=== PATIENT | male | born 1975 | race Caucasian/White ===

== ENCOUNTER 2017-04-15 17:42 | Observation (INO) ==
--- NOTE | 2017-04-15 17:47 | Emergency Department Note ---
Disposition Clinical Impression: Near syncope Transient cerebral ischemia Qualifiers: Transient cerebral ischemia type: unspecified Qualified Code(s): G45.9 - Transient cerebral ischemic attack, unspecified Disposition: Admitted As Inpatient Condition: Good Referrals: Blue Ann DO [Primary Care Provider] - Forms: ED Satisfaction Letter Time of Disposition: 18:52 Neuro HPI - General Chief Complaint: ED Neuro Symptoms/Deficit Stated Complaint: CVA SYMPTOMS Time Seen by Provider: 04/15/17 17:44 Source: patient, EMS Mode of arrival: EMS Limitations: no limitations Nursing Notes Reviewed: Yes Vital Signs Reviewed: Yes - History of Present Illness HPI Narrative: 41-year-old was eating dinner tonight had acute onset posterior headache with weakness of the left arm and leg and unsteady of gait according to squad. No recent trauma. Patient states he is not on a blood thinner. Onset of Symptoms Date: 04/15/17 Onset of Symptoms Time: 17:00 Symptom Onset Unknown: No Timing confirmed by: caregiver Location: left arm, left leg, ataxia Severity: moderate Quality: weakness, constant Symptoms Improving: No Improves with: none Worsens with: none Context: sudden onset On Anticoagulants: No Associated symptoms: Reports: denies other symptoms Treatments Prior to Arrival: prehospital POC glucose - Related Data Home Medications: Home Medications Medication Instructions Recorded Confirmed Atorvastatin [Lipitor] 10 mg PO HS 09/06/15 09/06/15 BuPROPion XL (24 HR) [Wellbutrin 150 mg PO QPM 09/06/15 09/06/15 XL] BuPROPion XL (24 HR) [Wellbutrin 300 mg PO QAM 09/06/15 09/06/15 XL] Levocetirizine Dihydrochloride 5 mg PO HS 09/06/15 09/06/15 [Xyzal] Lisinopril [Zestril] 20 mg PO DAILY 09/06/15 09/06/15 Previous Rx's Medication Instructions Recorded Clindamycin [Cleocin] 150 mg PO Q6HR #7 capsule 09/06/15 Hydrocodone/Acetaminophen [[facility] each PO Q4H PRN #40 tablet 09/06/15 7.5-325 Tablet] predniSONE [PredniSONE] 2 tab PO DAILY #8 tablet 09/06/15 Allergies/Adverse Reactions: Allergies Allergy/AdvReac Type Severity Reaction Status Date / Time Penicillins [PCN] Allergy Hives Verified 03/19/17 18:29 Constitutional: Denies: fever, chills, weakness, weight change Eyes: Denies: eye pain, eye discharge, vision change ENT ED: Denies: ear pain, throat pain, dental pain, hearing loss, epistaxis, congestion, dysphagia Cardiovascular: Denies: chest pain, palpitations, dyspnea on exertion, edema, syncope Respiratory: Denies: cough, dyspnea, wheezes, hemoptysis, stridor Gastrointestinal: Denies: abdominal pain, nausea, vomiting, diarrhea, constipation, hematemesis, melena, hematochezia Genitourinary: Denies: urgency, dysuria, frequency, hematuria Musculoskeletal: Denies: back pain, neck pain, arthralgia, myalgia Integumentary: Denies: rash, abrasion, lesions Neurological: Reports: weakness, numbness, abnormal gait, vertigo. Denies: headache, paresthesias, confusion Psychiatric: Denies: anxiety, depression, suicidal thoughts, homicidal thoughts , auditory hallucinations, visual hallucinations Endocrine: Denies: fatigue Hematological/Lymphatic: Denies: easy bleeding, easy bruising Allergic/Immunologic: Denies: facial swelling, urticaria Past Medical History - Past Medical History Medical history: Reports: non-contributory Surgical history: Reports: no surgical history Psychiatric history: Reports: anxiety, depression - Social History Smoking Status: Never smoker Smokeless Tobacco Status: No Alcohol use: Reports: none Drug use: Reports: none Physical Exam - General Limitations: no limitations General appearance: alert, in no apparent distress - Head Head exam: atraumatic, normocephalic, normal inspection - Eye Eye exam: Present: normal appearance, PERRL, EOMI - ENT ENT exam: normal exam, normal oropharynx, mucous membranes moist - Neck Neck exam: Present: normal inspection, full ROM, trachea midline - Chest Chest inspection: Present: normal inspection, symmetric chest wall rise - Respiratory Respiratory exam: Present: normal lung sounds bilaterally - Cardiovascular Cardiovascular exam: Present: regular rate, normal rhythm, normal heart sounds - Abdominal Exam Abdominal exam: Present: soft, Non-Tender. Absent: tenderness, distention, guarding, rebound, rigidity - Extremities Exam Extremities exam: Present: normal inspection, full ROM. Absent: tenderness, pedal edema - Expanded Lower Extremity Exam Neurovascular/Tendon exam: Absent: motor deficit, sensory deficit, tendon deficit Gait: not tested/not observed - Back Exam Back exam: Present: normal inspection, full ROM. Absent: tenderness - Neurological Exam Neurological exam: Present: alert, motor sensory deficit - Psychiatric Psychiatric exam: Present: normal affect, normal mood - Skin Skin exam: Present: warm, dry, intact, normal color Course - Reevaluation(s) Reevaluation #1: 41-year-old who comes in with some dizziness lightheadedness initially had left- sided arm weakness and numbness which resolved. Patient was evaluated by a stroke alert [facility] Dr. More who did not feel the patient met TPA criteria but recommended admission for of near syncope and possible TIA. Time: 18:51 - Consultations Consultation #1: Discussed with Dr. Kristi More neurology [facility] stroke program, patient is not a TPA candidate. Dr. More did review the CT scan. Negative for acute findings. Time: 18:04 Consultation #2: Discussed with Dr. Perez, admit Time: 19:18 Vital Signs Temperature 97 F L 04/15/17 17:43 Pulse Rate 87 04/15/17 17:43 Respiratory Rate 16 04/15/17 17:43 Blood Pressure 114/90 04/15/17 17:43 O2 Sat by Pulse Oximetry 100 04/15/17 17:43 Temperature 97 F L 04/15/17 17:43 Pulse Rate 74 04/15/17 19:02 Respiratory Rate 18 04/15/17 19:02 Blood Pressure 138/79 04/15/17 19:02 O2 Sat by Pulse Oximetry 99 04/15/17 19:02 Oxygen Delivery Oxygen Delivery Room Air Neuro Symptoms/Deficit - Lab Data Result diagrams: 04/15/17 17:57 04/15/17 17:57 Lab Results 04/15/17 04/15/17 04/15/17 Range/Units 17:57 17:57 17:57 WBC 11.5 H (4.3-11.1) K/mcL RBC 5.01 (4.19-5.50) M/mcL Hgb 14.6 (12.9-16.9) g/dL Hct 44.9 (37.5-50.1) % MCV 89.6 (83.0-100.0) fL MCH 29.1 (28.0-33.3) pg MCHC 32.5 (31.6-35.5) g/dL RDW 12.4 (11.5-14.5) % Plt Count 273 (140-400) K/mcL MPV 9.0 L (9.4-12.4) fL Immature Gran % 0.7 (0-4) % Seg Neutrophils % 52.5 % Lymphocytes % 31.5 % Monocytes % 9.1 % Eosinophils % 5.3 % Basophils % 0.9 % Neutrophils # 6.0 (1.6-8.9) K/mcL Lymphocytes # 3.6 (0.6-4.6) K/mcL Monocytes # 1.1 (0.0-1.3) K/mcL Eosinophils # 0.6 (0.0-0.6) K/mcL Basophils # 0.1 (0.0-0.2) K/mcL PT 11.6 (9.4-12.1) Seconds INR 1.1 APTT 29.7 (26.0-36.0) Seconds Sodium 138 (136-145) mEq/L Potassium 4.3 (3.5-4.5) mEq/L Chloride 104 (98-109) mEq/L Carbon Dioxide 23 (19-29) mEq/L BUN 22 (8-26) mg/dL Creatinine 1.36 H (0.72-1.25) mg/dL Est GFR ( Amer) > 60 (> 60) Est GFR (Non-Af Amer) 58 L (> 60) BUN/Creatinine Ratio 16 (6-26) Glucose 91 (70-99) mg/dL Calculated Osmolality 289 (280-300) Calcium 9.7 (8.6-10.8) mg/dL Troponin I (0-0.03) ng/mL 04/15/17 Range/Units 17:57 WBC (4.3-11.1) K/mcL RBC (4.19-5.50) M/mcL Hgb (12.9-16.9) g/dL Hct (37.5-50.1) % MCV (83.0-100.0) fL MCH (28.0-33.3) pg MCHC (31.6-35.5) g/dL RDW (11.5-14.5) % Plt Count (140-400) K/mcL MPV (9.4-12.4) fL Immature Gran % (0-4) % Seg Neutrophils % % Lymphocytes % % Monocytes % % Eosinophils % % Basophils % % Neutrophils # (1.6-8.9) K/mcL Lymphocytes # (0.6-4.6) K/mcL Monocytes # (0.0-1.3) K/mcL Eosinophils # (0.0-0.6) K/mcL Basophils # (0.0-0.2) K/mcL PT (9.4-12.1) Seconds INR APTT (26.0-36.0) Seconds Sodium (136-145) mEq/L Potassium (3.5-4.5) mEq/L Chloride (98-109) mEq/L Carbon Dioxide (19-29) mEq/L BUN (8-26) mg/dL Creatinine (0.72-1.25) mg/dL Est GFR ( Amer) (> 60) Est GFR (Non-Af Amer) (> 60) BUN/Creatinine Ratio (6-26) Glucose (70-99) mg/dL Calculated Osmolality (280-300) Calcium (8.6-10.8) mg/dL Troponin I 0.00 (0-0.03) ng/mL - EKG Data EKG attestation: Yes I reviewed and interpreted this EKG. EKG shows normal: sinus rhythm Rate: normal Rhythm: NSR Interpretation: no acute changes NIH Stroke Scale - Level of Consciousness LOC: Alert - LOC Questions LOC Questions: Answers both correctly - LOC Commands LOC Commands: Performs both correctly - Best Gaze Best Gaze: Normal - Visual Visual: No visual loss - Facial Palsy Facial Palsy: Normal - Motor Arms Motor Arm-Left: Drift, does NOT hit bed Motor Arm-Right: No drift for 10 seconds - Motor Legs Motor Leg-Left: Some effort against gravity, limb drifts to bed Motor Leg-Right: No drift for 5 seconds - Limb Ataxia Limb Ataxia: Present in TWO limbs - Sensory Sensory: Normal - Best Language Best Language: Mild to moderate aphasia. Examiner can identify picture from response - Dysarthria Dysarthria: Normal - Extinction and Inattention Extinction and Inattention: Normal - NIHSS Total Score NIHSS Total Score: 6 TPA Checklist - Eligibilty for IV tPA 1. LKW equal to or less than 4.5 hours be before treatment: Yes 2. Clinical diagnosis of ischemic stroke causing deficit: No - LKW: 3-4.5 hrs Add. Warnings/Precautions Patient/family understanding: The patient/family members have been counseled and understood the risk, benefit , and alternatives of treatment.
[2017-04-15 18:02] LABS: Basophils # 0.1 K/mcL (0.0-0.2); Basophils % 0.9 %; Eosinophils # 0.6 K/mcL (0.0-0.6); Eosinophils % 5.3 %; Hematocrit 44.9 % (37.5-50.1); Hemoglobin 14.6 g/dL (12.9-16.9); Immature Granulocytes % 0.7 % (0-4); Lymphocytes # 3.6 K/mcL (0.6-4.6); Lymphocytes % 31.5 %; Mean Corpuscular HGB Conc 32.5 g/dL (31.6-35.5); Mean Corpuscular Hemoglobin 29.1 pg (28.0-33.3); Mean Corpuscular Volume 89.6 fL (83.0-100.0); Monocytes # 1.1 K/mcL (0.0-1.3); Monocytes % 9.1 %; Platelet Count 273 K/mcL (140-400); Red Blood Count 5.01 M/mcL (4.19-5.50); Red Cell Distribution Width 12.4 % (11.5-14.5); Segmented Neutrophils % 52.5 %
[2017-04-15 18:07] LABS: INR 1.1; Prothrombin Time 11.6 Seconds (9.4-12.1)
[2017-04-15 18:09] LABS: Activated Partial Thrombo Time 29.7 Seconds (26.0-36.0)
[2017-04-15 18:16] LABS: BUN/Creatinine Ratio 16 (6-26); Blood Urea Nitrogen 22 mg/dL (8-26); Calcium 9.7 mg/dL (8.6-10.8); Carbon Dioxide 23 mEq/L (19-29); Chloride 104 mEq/L (98-109); Glucose 91 mg/dL (70-99); Osmolality,Calculated 289 (280-300); Potassium 4.3 mEq/L (3.5-4.5); Sodium 138 mEq/L (136-145); eGFR For African Americans > 60 (> 60); eGFR For Non-African Americans 58 (> 60)
[2017-04-15] MEDS ORDERED: Naloxone 0.4 MG/ML INJ IVP PRN (20:08)
[2017-04-15] MEDS ORDERED: Ondansetron 4 MG/2 ML VIAL IVP PRN (20:08)
[2017-04-15] MEDS ORDERED: *HR* Morphine 2 MG/ML SYRINGE IVP PRN (20:08)
[2017-04-15] MEDS ORDERED: *HR* OxyCODONE Immed Rel 5 MG TABLET PO PRN (20:08)
[2017-04-15] MEDS ORDERED: Acetaminophen 325 MG TABLET PO PRN (20:08)
--- NOTE | 2017-04-15 20:45 | Internal Med History&Physical ---
Date of Encounter: 04/15/17 Time of Encounter: 19:40 Assessment and Plan (1) Transient cerebral ischemia Current visit: Yes Status: Suspected 1. Will proceed with stroke work-up. 2. MRI brain, ECHO, BLE Dopplers 3. Consult neurology -- I called and discussed with Dr. Salazar. 4. ASA, STATIN. 5. Consult PT/OT/ST. Qualifiers: Transient cerebral ischemia type: unspecified Qualified Code(s): G45.9 - Transient cerebral ischemic attack, unspecified (2) Hypertension Current visit: Yes Status: Chronic 1. Hold Lisinopril and allow permissive HTN in the face of possible stroke. 2. Will treat HTN if SBP > 160. 3. Resume home meds when appropriate. Qualifiers: Hypertension type: essential hypertension Qualified Code(s): I10 - Essential (primary) hypertension (3) Psychiatric disorder Current visit: Yes Status: Chronic 1. Unknown psychiatric disorder, father would not elaborate in his presence. 2. Need to further investigate. 3. Patient may need sitter while in hospital. (4) DVT prophylaxis Current visit: Yes Status: Acute 1. Heparin SQ. Internal Medicine - H&P: HPI Chief complaint: headache; left sided weakenss Admitted From: Emergency Dept Plans for Post Hospital Care: Home History of present illness: Mr. Dykes is a 41 year old male who presents with complaints of sudden onset of headache followed by left-sided weakness and stumbling gait this afternoon. As a result, he was brought in by his caregiver and his father to the ER. Workup in the ER was negative. ER staff did telemedicine consultation with [facility] neurology who recommended he was not a TPA candidate. They recommended patient be admitted here at [facility] for stroke workup. Upon my assessment of the patient in the ER, he is lying in bed comfortably with no complaints. Father and caregiver are present. I inquired as to why he has a caregiver, and his father states he has caregiver because of underlying psychiatric illness. Father would not elaborate on that in the presence of the patient. He is alert and oriented 3. He follows commands fairly well. He is a little slow to respond and cooperate, however. His father and caregiver state that this is his baseline. There were no seizure activities, loss of bowel or bladder function, fevers, cough, congestion, or sore throat. He has never had this before and there is no family history of stroke. Past Med Surg Social Fam HX - Past Medical History Attestation: Yes The following information was validated with the patient. Source: old records reviewed, obtained from family Medical history: GERD, hypertension Psychiatric history: anxiety, depression - Past Surgical History Surgical History: no surgical history - Social History Smoking Status: Never smoker Smokeless Tobacco Status: No Alcohol use: none Drug use: none Current living situation: Home, With Family, Other (home caregiver) - Family History Mother History Unknown: Yes Living Status: Father Living Status: Still Living Hx Family Neurologic Disorders: No Internal Medicine - H&P: Meds BuPROPion XL (24 HR) [Wellbutrin XL] 150 mg PO QAM 09/06/15 [History] Lisinopril [Zestril] 20 mg PO DAILY 09/06/15 [History] Albuterol Sulfate [Proair Hfa] 2 puff IH Q4H PRN 04/15/17 [History] Atorvastatin Calcium [Lipitor] 20 mg PO HS 04/15/17 [History] Loratadine [Claritin] 10 mg PO DAILY 04/15/17 [History] Pantoprazole Sodium [Protonix] 40 mg PO DAILY 04/15/17 [History] 3 Allergy/AdvReac Type Severity Reaction Status Date / Time Penicillins [PCN] Allergy Hives Verified 03/19/17 18:29 - Constitutional Constitutional: no chills, no fever(s), no night sweats - EENT Eyes: no blurry vision, no change in vision Ears: no ear pain, no tinnitus Nose, mouth and throat: no nasal congestion, no nasal discharge, no sinus pressure, no sore throat - Cardiovascular Cardiovascular ROS IM: no chest pain, no dyspnea, no dyspnea on exertion, no palpitations, no syncope - Respiratory Respiratory: no cough, no hemoptysis, no chest congestion, no excessive phlegm production - Gastrointestinal Gastrointestinal: no abdominal pain, no diarrhea, no hematemesis, no hematochezia, no melena, no vomiting - Genitourinary Genitourinary ROS male: no dysuria, no flank pain, no hematuria - Musculoskeletal Musculoskeletal ROS IM: no arthralgias, no back pain - Integumentary Integumentary IM: no rash, no jaundice - Neurological Neurological ROS: focal weakness (left side -- onset today), headache(s), no disequilibrium, no dizziness, no frequent falls - Psychiatric Psychiatric: anxiety, depression - Endocrine Endocrine IM: no polydipsia, no polyuria - Allergic/Immunologic Allergic/Immunologic: no wheezing, no GI upset with certain foods - Constitutional Vitals: Temp Pulse Resp BP Pulse Ox 97 F L 78 18 155/68 100 04/15/17 17:43 04/15/17 19:56 04/15/17 20:33 04/15/17 20:33 04/15/17 19:56 General appearance: Present: cooperative, disheveled, A&O X 3, pleasant - Head Head exam: Present: atraumatic, normal inspection - Expanded Head Exam Head exam expanded: Absent: abrasion, contusion, general tenderness - Eye Eye exam: Present: EOMI, PERRL. Absent: scleral icterus Pupils: Present: normal accommodation - ENT ENT exam: Present: mucous membranes dry, normal exam - Neck Neck exam general surgery: Present: full ROM, supple. Absent: tenderness, nuchal rigidity - Expanded Neck Exam Neck exam: Absent: carotid bruit - Respiratory Respiratory exam: Present: CTAB. Absent: chest wall tenderness, rales, rhonchi , wheezes - Cardiovascular Cardiovascular exam: Present: RRR, +S1, +S2. Absent: diastolic murmur, systolic murmur - GI/Abdominal GI/Abdominal exam: Present: normal bowel sounds, soft. Absent: hepatomegaly, splenomegaly, tenderness - Extremities Exam Extremities exam: Present: full ROM, warm, radial pulses palpable and symmetrical. Absent: calf tenderness, joint swelling, pedal edema, tenderness - Back Exam Back exam: Present: normal inspection. Absent: CVA tenderness (L), CVA tenderness (R) - Neurological Exam Neurological exam: Present: alert, CN II-XII intact, oriented X3, no focal deficits, strengths equal and symetr throughout Additional comments: patient claims to have no sensation to his BLE; however, he responds easily to tactile stimulation of his feet, legs, shins unable to perform finger to nose and heel to sexton testing due to patient lack of cooperation - Psychiatric Psychiatric exam: Present: flat affect. Absent: agitated, anxious - Skin Skin exam: Present: dry, warm. Absent: rash Internal Med - H&P Results - Labs CBC & Chem 7: 04/15/17 17:57 04/15/17 17:57 - EKG Data -: EKG Interpreted by Myself EKG shows normal: sinus rhythm Rate: normal - EKG Data Prior EKG available for review: no EKG comments: 04/15/17 20:55 NSR; WNL - Diagnostic Studies CT scan - head Additional comments: CT head report reviewed: negative
[2017-04-15] MEDS: 0.9 % Sodium Chloride 1,000 ML IVC SCH (22:25)
[2017-04-15] MEDS: *HR* Heparin 5,000 UNIT/ML VIAL SQ SCH (22:25)
[2017-04-16] MEDS: *HR* Heparin 5,000 UNIT/ML VIAL SQ SCH ×2 (04:59→16:25)
[2017-04-16 05:16] LABS: Basophils # 0.1 K/mcL (0.0-0.2); Eosinophils # 0.7 K/mcL (0.0-0.6); Eosinophils % 6.4 %; Hematocrit 42.6 % (37.5-50.1); Hemoglobin 13.6 g/dL (12.9-16.9); Immature Granulocytes % 0.4 % (0-4); Lymphocytes # 4.6 K/mcL (0.6-4.6); Lymphocytes % 44.8 %; Mean Corpuscular HGB Conc 31.9 g/dL (31.6-35.5); Mean Corpuscular Hemoglobin 28.5 pg (28.0-33.3); Mean Corpuscular Volume 89.3 fL (83.0-100.0); Mean Platelet Volume 9.5 fL (9.4-12.4); Monocytes # 0.8 K/mcL (0.0-1.3); Platelet Count 241 K/mcL (140-400); Red Blood Count 4.77 M/mcL (4.19-5.50); Red Cell Distribution Width 12.4 % (11.5-14.5); Segmented Neutrophils % 39.4 %
[2017-04-16 05:29] LABS: Alanine Aminotransferase 33 Units/L (0-55); Albumin 3.4 g/dL (3.5-5.0); Albumin/Globulin Ratio 0.9 (1.1-2.2); Alkaline Phosphatase 64 Units/L (38-126); Aspartate Amino Transferase 23 Units/L (5-34); BUN/Creatinine Ratio 18 (6-26); Bilirubin,Total 0.5 mg/dL (0.2-1.2); Blood Urea Nitrogen 18 mg/dL (8-26); Calcium 9.4 mg/dL (8.6-10.8); Carbon Dioxide 23 mEq/L (19-29); Chloride 107 mEq/L (98-109); Chol/HDL Ratio 4.8 (0-4.9); Cholesterol 205 mg/dL (< 200); Globulin 3.9 g/dL (2.4-3.5); Glucose 84 mg/dL (70-99); HDL Cholesterol 43 mg/dL (40-59); LDL Cholesterol,Calculated 130 mg/dL (0-99); Magnesium 1.6 mg/dL (1.6-2.6); Osmolality,Calculated 289 (280-300); Potassium 3.8 mEq/L (3.5-4.5); Sodium 139 mEq/L (136-145); Total Protein 7.3 g/dL (6.0-8.3); Triglycerides 158 mg/dL (< 150); eGFR For African Americans > 60 (> 60); eGFR For Non-African Americans > 60 (> 60)
[2017-04-16] MEDS: Loratadine 10 MG TABLET PO SCH (08:11)
[2017-04-16] MEDS: BuPROPion XL (24 HR) 150 MG TABLET PO SCH (08:11)
[2017-04-16] MEDS: Aspirin 81 MG TAB.CHEW PO SCH (08:11)
[2017-04-16] MEDS: 0.9 % Sodium Chloride 1,000 ML IVC SCH (08:21)
--- NOTE | 2017-04-16 12:04 | Neurology - Consult Note ---
Date of Encounter: 04/16/17 Time of Encounter: 07:30 Assessment and Plan (1) Transient cerebral ischemia Current Visit: Yes Status: Suspected At this time it is not clear that indicate patient has a true ischemic event or perhaps it is related to some other condition at the moment he is only complaining of feeling no sensation in his left lower extremity without any focal motor weakness or changes in the reflexes seem to be quite unusual physiologically. One possibility could be related to localized impingement but he is not complaining of any back pain needed any changes in the reflexes to be suggestive of any radiculopathy. He also has some psychiatric behavior problems but apparently did not having diagnoses or at least it was not informed what kind of diagnosis he had. Regardless is scheduled for an MRI of the brain will follow the result for any ischemic event in the meantime continue him on aspirin he would also benefit from physical therapy evaluation particularly to see if he able to ambulate by himself or not Qualifiers: Transient cerebral ischemia type: unspecified Qualified Code(s): G45.9 - Transient cerebral ischemic attack, unspecified (2) Psychiatric disorder Current Visit: Yes Status: Chronic History of Present Illness HPI: Mr. Dykes is a 41 year old male admitted with sudden onset of headache followed by left-sided weakness and stumbling gait this afternoon. As a result, he was brought in by his caregiver and his father to the ER. Workup in the ER was negative. [facility] tele stroke consultation was done thought not to be a TPA candidate, recommended patient be admitted here at [facility] for stroke workup. in the ER He was accompanied with his caregiver, and his father states he has caregiver because of underlying psychiatric illness. he would not elaborate on that in the presence of the patient. He is alert and oriented 3. He follows commands fairly well. He is a little slow to respond and cooperate, Past Med Surg Social Fam HX - Past Medical History Medical history: GERD, hypertension Psychiatric history: anxiety, depression - Past Surgical History Surgical History: other - Social History Smoking Status: Never smoker Smokeless Tobacco Status: No Alcohol use: none Drug use: none - Family History Mother History Unknown: Yes Adopted: Yes Living Status: Father Adopted: Yes Living Status: Still Living Hx Family Neurologic Disorders: No Medications and Allergies BuPROPion XL (24 HR) [Wellbutrin XL] 150 mg PO QAM 09/06/15 [History] Lisinopril [Zestril] 20 mg PO DAILY 09/06/15 [History] Albuterol Sulfate [Proair Hfa] 2 puff IH Q4H PRN 04/15/17 [History] Atorvastatin Calcium [Lipitor] 20 mg PO HS 04/15/17 [History] Loratadine [Claritin] 10 mg PO DAILY 04/15/17 [History] Pantoprazole Sodium [Protonix] 40 mg PO DAILY 04/15/17 [History] 3 Allergy/AdvReac Type Severity Reaction Status Date / Time Penicillins [PCN] Allergy Hives Verified 03/19/17 18:29 All Systems: A 10-system review of systems was performed and is negative for pertinent findings except as documented above in the HPI. Physical Examination - Vital Signs Vital Signs: Initial Vital Signs Temp Pulse Resp BP Pulse Ox 97 F L 87 16 114/90 100 04/15/17 17:43 04/15/17 17:43 04/15/17 17:43 04/15/17 17:43 04/15/17 17:43 - Constitutional General appearance: comfortable - Neurologic Detailed motor examination: grossly full strength in all extremities Detailed sensory examination: other (he says NOT feeling any thing in his left lower extremity, despite able to withdraw on pin prick and pain) Reflex and gait examination: intact Reflexes: Biceps: 1+, Triceps: 1+, Brachioradialis: 1+, Patella: 1+, Achilles: 1 + Mental Status Examination: awake, alert, oriented to person, oriented to place, oriented to time, follows commands appropriately, answers questions appropriately, follows simple commands, localizes noxious stimulation Cranial nerve examination: PERRL, EOMI, visual graff intact, no facial asymmetry is present, no dysarthria Cerebellar examination: no dysmetria Results - Laboratory Findings CBC and BMP: 04/16/17 04:06 04/16/17 04:06 Abnormal lab findings: Abnormal lab results Eosinophils # 0.7 K/mcL (0.0-0.6) H 04/16/17 04:06 Albumin 3.4 g/dL (3.5-5.0) L 04/16/17 04:06 Globulin 3.9 g/dL (2.4-3.5) H 04/16/17 04:06 Albumin/Globulin Ratio 0.9 (1.1-2.2) L 04/16/17 04:06 Triglycerides 158 mg/dL (< 150) H 04/16/17 04:06 Cholesterol 205 mg/dL (< 200) H 04/16/17 04:06 LDL Cholesterol, Calc 130 mg/dL (0-99) H 04/16/17 04:06 VLDL Cholesterol, Calc 32 mg/dL (< 31) H 04/16/17 04:06 Consult Discharge Plan - Plan Referrals: Blue Ann DO [Primary Care Provider] -
--- NOTE | 2017-04-16 15:55 | Internal Med Progress Note ---
Date of Encounter: 04/16/17 Time of Encounter: 10:00 - Assessment and plan (1) DVT prophylaxis Current Visit: Yes Status: Acute Assessment and plan: Heparin subcutaneously (2) Near syncope Current Visit: Yes Status: Acute Assessment and plan: Patient reports he feels dizzy and almost blackout. Consider near syncope. - We will check echocardiogram and duplex carotid. - Continue cardiac monitoring to rule out arrhythmia. - MRI brain has been done, no acute infarct - Orthostatic vitals (3) Hypertension Current Visit: Yes Status: Chronic Assessment and plan: BP is not high right now. Home medications lisinopril is on hold Qualifiers: Hypertension type: essential hypertension Qualified Code(s): I10 - Essential (primary) hypertension (4) Psychiatric disorder Current Visit: Yes Status: Chronic Assessment and plan: Patient did report some psychiatry disorder. Not sure for the final diagnosis. Patient has focal neuro deficit but MRI shows negative for infarct. Need to rule out conversion disorder. Will consult psychiatry. (5) Transient cerebral ischemia Current Visit: Yes Status: Suspected Assessment and plan: Patient has neuro symptoms on and off. Rectal now complaining of left leg no feeling. MR brain shows no infarct. - Probably TIA. - We will continue cardiac monitoring. Check echo and duplex carotid - Neurology consult on case - PTOT evaluation Qualifiers: Transient cerebral ischemia type: unspecified Qualified Code(s): G45.9 - Transient cerebral ischemic attack, unspecified - Time Spent With Patient 25 - 35 minutes - Subjective Interval history: Patient is a 41-year-old male admitted for left leg loss sensation and dizziness. Past medical history significant for hypertension, GERD, and psych disorder. Patient was seen and examined. He is awake alert oriented 3. Denies dizziness. Complaining of no sensation on left leg. Vital signs stable. Neurology consult appreciated. MRI brain shows no acute intracranial changes. - Constitutional Vitals: Temp Pulse Resp BP Pulse Ox 98.1 F 73 14 110/95 96 04/16/17 15:18 04/16/17 15:18 04/16/17 15:18 04/16/17 15:18 04/16/17 15:18 General appearance: Present: cooperative, disheveled, A&O X 3, pleasant - Head Head exam: Present: atraumatic, normocephalic - Eye Eye exam: Present: PERRL, conjuntiva pink, sclera anicteric Pupils: Present: PERRL - Neck Neck exam general surgery: Present: supple, trachea midline. Absent: lymphadenopathy - Respiratory Respiratory exam: Present: CTAB. Absent: accessory muscle use, rales, rhonchi, wheezes - Cardiovascular Cardiovascular exam: Present: RRR, +S1, +S2. Absent: diastolic murmur, gallop, rubs, systolic murmur - GI/Abdominal GI/Abdominal exam: Present: normal bowel sounds, soft, no peritoneal signs. Absent: distended, tenderness - Extremities Exam Extremities exam: Present: warm, radial pulses palpable and symmetrical. Absent : calf tenderness, cyanotic, pedal edema - Neurological Exam Neurological exam: Present: CN II-XII intact, motor sensory deficit (Left leg sensation decreased.), oriented X3, no focal deficits. Absent: pronater drift, facial droop, speech deficit - Skin Skin exam: Present: dry, intact Internal Medicine: Result - Labs CBC & Chem 7: 04/16/17 04:06 04/16/17 04:06 Labs: Short CBC 04/16/17 Range/Units 04:06 WBC 10.2 (4.3-11.1) K/mcL Hgb 13.6 (12.9-16.9) g/dL Hct 42.6 (37.5-50.1) % Plt Count 241 (140-400) K/mcL Neutrophils # 4.0 (1.6-8.9) K/mcL BMP 04/16/17 04:06 Sodium 139 Potassium 3.8 Chloride 107 Carbon Dioxide 23 BUN 18 Creatinine 1.00 Glucose 84 Calcium 9.4 Liver Function 04/16/17 Range/Units 04:06 Total Bilirubin 0.5 (0.2-1.2) mg/dL AST 23 (5-34) Units/L ALT 33 (0-55) Units/L Alkaline Phosphatase 64 (38-126) Units/L Albumin 3.4 L (3.5-5.0) g/dL - ABG Interpretation ABG results: PT/INR, D-dimer PT 11.6 Seconds (9.4-12.1) 04/15/17 17:57 - Impressions Impressions Brain MRI 04/16/17 20:08 IMPRESSION: 1. No acute infarct or acute intracranial process identified. 2. Several nonspecific foci of white matter signal abnormality in both frontal lobes. Although nonspecific, these are likely of doubtful clinical significance. 3. Chronic appearing right maxillary sinusitis. D/ / 04/16/2017 10:45:05 Eliud Thakkar MD / earnold Interpreting Provider: Eliud Thakkar MD Echocardiogram 04/16/17 20:08 Impressions: Normal LV systolic function, LVEF 55-60%. Normal left ventricular diastolic function. Normal right ventricular size and function. No significant valvular dysfunction. No evidence of intracardiac shunting with agitated saline contrast. Left Ventricular Wall Motion: Rest Echo Findings All wall segments showed normal motion. Findings: Study Quality * Suboptimal echo windows. ECG Findings * Normal sinus rhythm. Left Ventricle * Normal LV systolic function, LVEF 55-60%. * Normal LV chamber size and wall thickness. * Normal left ventricular diastolic function. Right Ventricle * Normal right ventricular size and function. Left Atrium * Normal left atrial size. Right Atrium * Normal right atrial size. Interatrial Septum * No evidence of intracardiac shunting with agitated saline contrast. Aorta * Normally sized aortic root. Pericardium * There is no pericardial effusion present. IVC * The IVC is not well evaluated. Aortic Valve * Aortic valve not well visualized. * No aortic stenosis. * No aortic regurgitation. Mitral Valve * Normal mitral valve structure. * No mitral stenosis. * Trace mitral regurgitation. Tricuspid Valve * Normal tricuspid valve structure. * No tricuspid stenosis. * Trace tricuspid regurgitation. * Unable to estimate RVSP due to lack of TR jet. Pulmonic Valve * Pulmonic valve not well visualized. * No pulmonic stenosis. * No pulmonic regurgitation. Consult Discharge Plan - Plan Referrals: Blue nAn DO [Primary Care Provider] -
--- NOTE | 2017-04-16 18:19 | Electrocardiograph Report ---
[address] [address] Test Date: 2017-04-15 Pat Name: Edwardo Dykes Department: 104 Room: [facility] Gender: M Laser Machine Operator: : 1975 Requested By: Lashaun Mariano Order Number: [id number] Reading MD: Josefina Mora Measurements Intervals [place] Rate: 82 P: 65 WI: 137 QRS: 12 QRSD: 98 T: 18 QT: 384 QTc: 422 Interpretive Statements SINUS RHYTHM Electronically Signed On 04-16-2017 18:17:17 EDT by Josefina Mora
[2017-04-17] MEDS: *HR* Heparin 5,000 UNIT/ML VIAL SQ SCH (05:53)
[2017-04-17 06:11] LABS: Basophils # 0.1 K/mcL (0.0-0.2); Basophils % 1.1 %; Eosinophils # 0.6 K/mcL (0.0-0.6); Eosinophils % 7.3 %; Hemoglobin 13.8 g/dL (12.9-16.9); Immature Granulocytes % 0.4 % (0-4); Lymphocytes # 3.2 K/mcL (0.6-4.6); Lymphocytes % 39.5 %; Mean Corpuscular HGB Conc 32.9 g/dL (31.6-35.5); Mean Corpuscular Hemoglobin 29.2 pg (28.0-33.3); Mean Corpuscular Volume 88.8 fL (83.0-100.0); Mean Platelet Volume 9.7 fL (9.4-12.4); Monocytes # 0.9 K/mcL (0.0-1.3); Monocytes % 10.6 %; Neutrophils # 3.3 K/mcL (1.6-8.9); Platelet Count 259 K/mcL (140-400); Red Blood Count 4.73 M/mcL (4.19-5.50); Red Cell Distribution Width 12.3 % (11.5-14.5); Segmented Neutrophils % 41.1 %
[2017-04-17 07:15] LABS: BUN/Creatinine Ratio 17 (6-26); Blood Urea Nitrogen 18 mg/dL (8-26); Calcium 9.6 mg/dL (8.6-10.8); Carbon Dioxide 24 mEq/L (19-29); Chloride 104 mEq/L (98-109); Glucose 90 mg/dL (70-99); Osmolality,Calculated 289 (280-300); Potassium 3.9 mEq/L (3.5-4.5); Sodium 139 mEq/L (136-145); eGFR For African Americans > 60 (> 60); eGFR For Non-African Americans > 60 (> 60)
[2017-04-17] MEDS: BuPROPion XL (24 HR) 150 MG TABLET PO SCH (08:30)
[2017-04-17] MEDS: Loratadine 10 MG TABLET PO SCH (08:30)
[2017-04-17] MEDS: Aspirin 81 MG TAB.CHEW PO SCH (08:30)
[2017-04-17 10:51] VITALS: BP 128/91
--- NOTE | 2017-04-17 12:09 | Neurology Progress Note ---
Date of Encounter: 04/17/17 Time of Encounter: 08:15 Assessment and Plan (1) Leg numbness Current Visit: Yes Status: Acute At this point no evidence of any stroke on his MRI or on his exam his numbness and not feeling anything on his left lower extremity is also quite unusual is does not fit into any functional neurological pattern regardless, he says that he is have a feeling in his left leg really doubt that it is a lumbar radicular special even there was no change in the reflexes noted. At this time I would not recommend any further workup he could be evaluated by physical therapy to make sure that his gait and balance is a stable and is okay to discharge him. I agree that he may need psychiatric evaluation particularly to have a confirmed diagnosis Patient is okay to discharge from neurology standpoint (2) Psychiatric disorder Current Visit: Yes Status: Chronic Subjective Interval history: Denies any other new symptoms or obvious stable in fact this morning he mentioned that he is a good news for us in the news is that he can start feeling in his left lower extremity as yesterday he was not able to feel anything. MRI of the brain did not show any acute abnormalities some nonspecific chronic white matter changes noted Objective - Constitutional Vitals: Temp Pulse Resp BP Pulse Ox 97.7 F 86 12 128/91 97 04/17/17 10:50 04/17/17 10:50 04/17/17 10:50 04/17/17 10:50 04/17/17 10:50 - Neurological Exam Motor Examination: Present: grossly full strength in all extremities Sensation intact: Present: other (he says NOT feeling any thing in his left lower extremity, despite able to withdraw on pin prick and pain) Reflex and gait examination: intact Mental Status Examination: Present: awake, alert, oriented to person, oriented to place, oriented to time, follows commands appropriately, answers questions appropriately, follows simple commands, localizes noxious stimulation Cranial nerve examination: Present: PERRL, EOMI, visual graff intact, no facial asymmetry is present, no dysarthria Cerebellar examination: Present: no dysmetria Results - Laboratory Findings CBC and BMP: 04/17/17 04:37 04/17/17 04:37 Abnormal lab findings: Abnormal lab results Albumin 3.4 g/dL (3.5-5.0) L 04/16/17 04:06 Globulin 3.9 g/dL (2.4-3.5) H 04/16/17 04:06 Albumin/Globulin Ratio 0.9 (1.1-2.2) L 04/16/17 04:06 Triglycerides 158 mg/dL (< 150) H 04/16/17 04:06 Cholesterol 205 mg/dL (< 200) H 04/16/17 04:06 LDL Cholesterol, Calc 130 mg/dL (0-99) H 04/16/17 04:06 VLDL Cholesterol, Calc 32 mg/dL (< 31) H 04/16/17 04:06 Consult Discharge Plan - Plan Referrals: Tricia Moses CNP [Advanced Practice Nurse] - 04/24/17 1:00 pm
--- NOTE | 2017-04-17 15:25 | Discharge Summary ---
Date of Encounter: 04/17/17 Time of Encounter: 10:00 - Discharge Diagnosis (1) DVT prophylaxis Priority: Secondary Status: Acute (2) Near syncope Priority: Primary Status: Acute (3) Hypertension Priority: Secondary Status: Chronic Qualifiers: Hypertension type: essential hypertension Qualified Code(s): I10 - Essential (primary) hypertension (4) Psychiatric disorder Priority: Secondary Status: Chronic (5) Transient cerebral ischemia Priority: Primary Status: Suspected Qualifiers: Transient cerebral ischemia type: unspecified Qualified Code(s): G45.9 - Transient cerebral ischemic attack, unspecified - Discharge Medications Prescriptions: Aspirin 81 mg PO DAILY #30 tab.chew Home Medications: BuPROPion XL (24 HR) [Wellbutrin Xl] 150 mg PO QAM 09/06/15 [History] Lisinopril [Zestril] 20 mg PO DAILY 09/06/15 [History] Albuterol Sulfate [Proair Hfa] 2 puff IH Q4H PRN 04/15/17 [History] Loratadine [Claritin] 10 mg PO DAILY 04/15/17 [History] Pantoprazole Sodium [Protonix] 40 mg PO DAILY 04/15/17 [History] Aspirin 81 mg PO DAILY #30 tab.chew 04/17/17 [Rx] Atorvastatin Calcium [Lipitor] 40 mg PO HS #60 04/17/17 [Rx] Allergies/Adverse Reactions: 3 Allergy/AdvReac Type Severity Reaction Status Date / Time Penicillins [PCN] Allergy Hives Verified 03/19/17 18:29 Procedures/tests Complete & Pending: Procedures Performed prior 72 hours Category Date Time Status MR head/brain wo con [MR] Routine MRI 04/16/17 20:08 Completed ECG 12 lead ECG [ECG] AM 0600 Y 04/16/17 06:00 Ordered ECG 12 lead ECG [ECG] Routine Y 04/15/17 17:46 Completed EV carotid duplex imaging BI Routine Y 04/16/17 20:08 Completed EV echocardiogram Routine Y 04/16/17 20:08 Completed - Notes to Outpatient Provider 1. Add aspirin 81 mg daily. Increase atorvastatin dose from 20mg daily to 40mg qd. Date of admission: 04/15/17 20:02 Primary care physician: Blue Ann DO Consults: 04/15/17 20:08 Consult to Neurology [CONS] Routine Consulting Provider: Neurology [facility] Reason for Consult: left sided weakness Time Notified: 20:23 Call Completed: No 04/15/17 21:25 Consult to Pastoral Services [CONS] Routine Comment: 04/16/17 09:40 Consult to Physical Therapy [CONS] Routine Comment: Evaluate, develop and implement POC Reason for Consult: leg weakness, 04/16/17 16:17 Consult to Psychiatry [CONS] Routine Consulting Provider: Psychiatry [facility] Reason for Consult: Psych hx. Neuro symptoms but MRI shows no infarct, r/o Conversion disorder Call Completed: Yes Discharging clinician: Lashaun Mariano Anticipated date of discharge: 04/17/17 - Patient Status Disposition: Home, Self-Care Condition: Good Functional capacity at discharge: independent ambulation Overall status at discharge: patient is back to baseline - Discharge Instructions Follow Up With: Tricia Moses CNP [Advanced Practice Nurse] - 04/24/17 1:00 pm - Diet and Activity Activity: increase activity as tolerated Diet: advance to your usual diet, low salt diet Interval History: HPI: Mr. Dykes is a 41 year old male who presents with complaints of sudden onset of headache followed by left-sided weakness and stumbling gait this afternoon. As a result, he was brought in by his caregiver and his father to the ER. Workup in the ER was negative. ER staff did telemedicine consultation with [facility] neurology who recommended he was not a TPA candidate. They recommended patient be admitted here at [facility] for stroke workup. Upon my assessment of the patient in the ER, he is lying in bed comfortably with no complaints. Father and caregiver are present. I inquired as to why he has a caregiver, and his father states he has caregiver because of underlying psychiatric illness. Father would not elaborate on that in the presence of the patient. He is alert and oriented 3. He follows commands fairly well. He is a little slow to respond and cooperate, however. His father and caregiver state that this is his baseline. There were no seizure activities, loss of bowel or bladder function, fevers, cough, congestion, or sore throat. He has never had this before and there is no family history of stroke. Hospital course: Mr. Dykes is a 41 year old male was admitted as near syncope and to rule out stroke as patient complaining of left leg no sensation. Patient was placed on continuous cardiac monitoring over 24 hours, echocardiogram, duplex carotid, and MRI brain has been done. All results unremarkable. Neurology consult was called and saw patient. Patient's condition has improved spontaneously. We planned to consult psychiatry to rule out conversion disorder, however because patient has resumed his sensation on left leg, psychiatry consult is not really necessary. I saw and examined the patient today. He is awake alert, oriented 3. Said he can feel on his left leg, sensation resumed without any deficit. Physical therapy saw patient and think patient function well, no further physical therapy needed. Vitals are stable, including orthostatic vitals are normal. Patient will discharge home. Will add aspirin and increase dose of atorvastatin , as patient was considered TIA and was found hyperlipidemia. - Time Spent with Patient Total time spent providing and/or coordinating discharge services: 25 minutes Less than 30 minutes - Constitutional Vitals: Temp Pulse Resp BP Pulse Ox 97.7 F 86 12 128/91 97 04/17/17 10:50 04/17/17 10:50 04/17/17 10:50 04/17/17 10:50 04/17/17 10:50 General appearance: Present: cooperative, disheveled, A&O X 3, pleasant - Head Head exam: Present: atraumatic, normocephalic - Eye Eye exam: Present: PERRL, conjuntiva pink, sclera anicteric Pupils: Present: PERRL - Neck Neck exam general surgery: Present: supple, trachea midline. Absent: lymphadenopathy - Respiratory Respiratory exam: Present: CTAB. Absent: accessory muscle use, rales, rhonchi, wheezes - Cardiovascular Cardiovascular exam: Present: RRR, +S1, +S2. Absent: diastolic murmur, gallop, rubs, systolic murmur - GI/Abdominal GI/Abdominal exam: Present: normal bowel sounds, soft, no peritoneal signs. Absent: distended, tenderness - Extremities Exam Extremities exam: Present: warm, radial pulses palpable and symmetrical. Absent : calf tenderness, cyanotic, pedal edema - Neurological Exam Neurological exam: Present: CN II-XII intact, oriented X3, no focal deficits. Absent: pronater drift, facial droop, speech deficit - Skin Skin exam: Present: dry, intact
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
--- NOTE | 2017-04-18 08:09 | Carotid Imaging Report ---
Carotid Duplex Patient Name:Edwardo Dykes Order Number:[id number] Procedure Date:04/16/2017 Date:1975Age:41 yrs Gender:Male Lt BP:130 / 80 mmHg Rt.BP:126 / 82 mmHgHeart Rate: Location:[facility] Room #: 2NE18 Tie Inspector:Juana Jimenez, RDCS, RVT Referring MD:Cain Gonzalez MD Reading MD:Primo Velazquez MD Primary Indications:Transient ischemic attack Risk Factors Yes/No Hypertension Yes Impressions: Findings: Bilateral carotid system is essentially normal. Recommendations: After imaging the patient returned to their room. Findings Carotid Duplex: Right: The right proximal common carotid artery has a PSV of 124 cm/s and a EDV of 22 cm/s. The right mid common carotid artery has a PSV of 136 cm/s and a EDV of 28 cm/s. The right distal common carotid artery has a PSV of 124 cm/s and a EDV of 29 cm/s. The right bifurcation has a PSV of 86 cm/s and a EDV of 24 cm/s. The right proximal internal carotid artery has a PSV of 100 cm/s and a EDV of 26 cm/s. The right mid internal carotid artery has a PSV of 112 cm/s and a EDV of 33 cm/s. The right distal internal carotid artery has a PSV of 107 cm/s and a EDV of 31 cm/s. The right eca has a PSV of 134 cm/s and a EDV of 12 cm/s. The right vertebral artery has a PSV of 59 cm/s and a EDV of 12 cm/s. Left: The left proximal common carotid artery has a PSV of 161 cm/s and a EDV of 28 cm/s. The left mid common carotid artery has a PSV of 136 cm/s and a EDV of 24 cm/s. The left distal common carotid artery has a PSV of 93 cm/s and a EDV of 17 cm/s. The left bifurcation has a PSV of 81 cm/s and a EDV of 13 cm/s. The left proximal internal carotid artery has a PSV of 93 cm/s and a EDV of 28 cm/s. The left mid internal carotid artery has a PSV of 111 cm/s and a EDV of 41 cm/s. The left distal internal carotid artery has a PSV of 53 cm/s and a EDV of 22 cm/s. The left eca has a PSV of 147 cm/s and a EDV of 20 cm/s. The left vertebral artery has a PSV of 63 cm/s and a EDV of 17 cm/s. Prior Study: No prior study available for comparison. Carotid Results Right PSV EDV Assessment Proximal CCA 124 22 Mid CCA 136 28 Distal CCA 124 29 Bifurcation 86 24 Proximal ICA 100 26 Mid ICA 112 33 Distal ICA 107 31 ECA 134 12 Vertebral Artery 59 12 Antegrade Flow Left PSV EDV Assessment Proximal CCA 161 28 Mid CCA 136 24 Distal CCA 93 17 Bifurcation 81 13 Proximal ICA 93 28 Mid ICA 111 41 Distal ICA 53 22 ECA 147 20 Vertebral Artery 63 17 Antegrade Flow Ratio's Right ICA/CCA Ratio: 0.82 ICA/CCA Values: 112/136 Left ICA/CCA Ratio: 0.82 ICA/CCA Values: 111/136 Updated by Primo Velazquez MD on 04/18/2017 6:38:47 AM electronically signed on 04/18/2017 6:39:17 AM with status of Final
== END 2017-04-17 16:42 | disposition home or self-care (01) ==
LOC: EMEROO 17:42 → 2NENU 17:42
PROVIDERS: ADMIT Pediatrics; ATTEND Internal Medicine

== ENCOUNTER 2018-03-01 12:35 | Observation (INO) ==
[2018-03-01] MEDS ORDERED: Aspirin 81 MG TAB.CHEW PO ONE (12:40)
--- NOTE | 2018-03-01 13:09 | Emergency Department Note ---
Disposition Clinical Impression: Chest pain Qualifiers: Chest pain type: unspecified Qualified Code(s): R07.9 - Chest pain, unspecified Disposition: Admitted As Inpatient Condition: Good Referrals: Blue Ann DO [Primary Care Provider] - Forms: ED Satisfaction Letter Time of Disposition: 14:39 General Adult HPI - General Chief complaint: ED Chest Pain Stated complaint: Chest Pain Time Seen by Provider: 03/01/18 12:39 Source: patient, EMS Mode of arrival: EMS Limitations: no limitations Nursing Notes Reviewed: Yes Vital Signs Reviewed: Yes - History of Present Illness HPI Narrative: 42-year-old male with history of hypertension, hypercholesterolemia presenting to the emergency Department chief complaint of chest pain. Patient states he was seen here a few days ago and diagnosed with costochondritis, given naproxen and discharge. Patient states he started to feel better for a few days and then today at work while he was lifting boxes started to have substernal chest pain that radiated down his right arm. He states he felt weak. Denies syncope. Denies hitting his head. Patient denies any previous cardiac workup. Denies family history of cardiac disease. Patient states he has been taking the naproxen but no other new medications. Pain Scale: 10 - Related Data Home Medications Medication Instructions Recorded Confirmed Lisinopril [Zestril] 20 mg PO DAILY 09/06/15 03/01/18 Naproxen [Naprosyn] 500 mg PO BID PRN 03/01/18 03/01/18 Allergies Allergy/AdvReac Type Severity Reaction Status Date / Time Penicillins [PCN] Allergy Hives Verified 03/01/18 14:01 atorvastatin [From Lipitor] AdvReac Vomiting Verified 03/01/18 14:01 All systems ED: reviewed and negative except as stated. Constitutional: Reports: weakness. Denies: fever, chills Eyes: Reports: as per HPI ENT ED: Reports: as per HPI Cardiovascular: Reports: chest pain. Denies: palpitations, dyspnea on exertion Respiratory: Denies: cough, dyspnea, wheezes Gastrointestinal: Denies: abdominal pain, vomiting, diarrhea Genitourinary: Reports: as per HPI Musculoskeletal: Reports: as per HPI Integumentary: Denies: rash, abrasion Neurological: Denies: numbness, paresthesias Psychiatric: Reports: as per HPI Endocrine: Reports: as per HPI Hematological/Lymphatic: Reports: as per HPI Allergic/Immunologic: Reports: as per HPI Past Medical History - Past Medical History Attestation: Yes The following information was validated with the patient. Medical history: Reports: GERD, hypertension Surgical history: Reports: other Psychiatric history: Reports: no psych history - Social History Smoking Status: Former smoker Smokeless Tobacco Status: Yes Alcohol use: Reports: none Drug use: Reports: none Physical Exam - General Limitations: no limitations General appearance: alert, in no apparent distress - Head Head exam: atraumatic, normocephalic, normal inspection - Eye Eye exam: Present: normal appearance. Absent: scleral icterus, conjunctival injection - ENT ENT exam: normal exam, mucous membranes moist - Neck Neck exam: Present: normal inspection, full ROM. Absent: tenderness, meningismus - Chest Chest inspection: Present: normal inspection, symmetric chest wall rise, tenderness (Parasternal tenderness to deep palpation). Absent: rash - Respiratory Respiratory exam: Present: normal lung sounds bilaterally. Absent: respiratory distress, wheezes - Cardiovascular Cardiovascular exam: Present: regular rate, normal rhythm, normal heart sounds - Abdominal Exam Abdominal exam: Present: soft, Non-Tender. Absent: distention, guarding, rebound - Extremities Exam Extremities exam: Present: normal inspection, full ROM - Neurological Exam Neurological exam: Present: alert, oriented X3 - Psychiatric Psychiatric exam: Present: normal affect, normal mood - Skin Skin exam: Present: warm, intact Course Course Narrative: 42-year-old male presenting for chest pain. Patient was seen a few days ago and diagnosed with costochondritis. We will perform basic laboratory analysis including troponin, EKG. We will also provide the patient with aspirin and nitroglycerin trial. Patient is alert and oriented 3 in the room with stable vital signs. Disposition most likely admission for chest pain rule out but pending results. Patient agrees with this plan. - Reevaluation(s) Reevaluation #1: Patient's laboratory analysis come back within normal limits. After 3 nitroglycerin no relief. Due to the patient's heart score being for we will admit him at this time for further chest pain workup. Patient is alert and oriented 3 and room stable vital signs. Patient agrees with this plan. Reevaluation #2: Hospitalist Dr. Richardson agrees to accept the patient at this time. Time: 14:39 Vital Signs Temperature 98.4 F 03/01/18 12:38 Pulse Rate 63 03/01/18 12:38 Respiratory Rate 18 03/01/18 12:38 Blood Pressure 140/95 03/01/18 12:38 O2 Sat by Pulse Oximetry 99 03/01/18 12:38 Temperature 98.4 F 03/01/18 12:38 Pulse Rate 63 03/01/18 14:07 Respiratory Rate 18 03/01/18 14:07 Blood Pressure 141/95 03/01/18 14:07 O2 Sat by Pulse Oximetry 97 03/01/18 14:07 Oxygen Delivery Oxygen Delivery Room Air Medical Decision Making - Lab Data Result diagrams: 03/01/18 13:10 03/01/18 13:10 Lab Results 03/01/18 03/01/18 Range/Units 13:10 13:10 WBC 8.7 (4.3-11.1) K/mcL RBC 5.30 (4.19-5.50) M/mcL Hgb 15.8 (12.9-16.9) g/dL Hct 47.5 (37.5-50.1) % MCV 89.6 (83.0-100.0) fL MCH 29.8 (28.0-33.3) pg MCHC 33.3 (31.6-35.5) g/dL RDW 13.2 (11.5-14.5) % Plt Count 274 (140-400) K/mcL MPV 10.0 (9.4-12.4) fL Immature Gran % 0.3 (0-4) % Seg Neutrophils % 51.4 % Lymphocytes % 29.8 % Monocytes % 8.6 % Eosinophils % 9.1 % Basophils % 0.8 % Neutrophils # 4.5 (1.6-8.9) K/mcL Lymphocytes # 2.6 (0.6-4.6) K/mcL Monocytes # 0.8 (0.0-1.3) K/mcL Eosinophils # 0.8 H (0.0-0.6) K/mcL Basophils # 0.1 (0.0-0.2) K/mcL Sodium 139 (136-145) mEq/L Potassium 4.2 (3.5-5.1) mEq/L Chloride 106 (98-107) mEq/L Carbon Dioxide 26 (23-29) mEq/L BUN 13 (6-20) mg/dL Creatinine 1.01 (0.70-1.30) mg/dL Est GFR ( Amer) > 60 (> 60) Est GFR (Non-Af Amer) > 60 (> 60) BUN/Creatinine Ratio 13 (6-26) Glucose 92 (70-105) mg/dL Calculated Osmolality 288 (280-300) Calcium 9.6 (8.6-10.3) mg/dL Troponin I < 0.03 (< 0.04) ng/mL - EKG Data EKG #1 EKG attestation: Yes I reviewed and interpreted this EKG. EKG results narrative: Sinus rhythm. LVH. 62 bpm. MD interval 116, QRS 89, QTC 391. No signs of acute ST segment elevation or ischemia. Compared to previous EKG completed on 02/26/2018 no significant changes noted.
[2018-03-01 13:24] LABS: Basophils # 0.1 K/mcL (0.0-0.2); Basophils % 0.8 %; Eosinophils # 0.8 K/mcL (0.0-0.6); Eosinophils % 9.1 %; Hematocrit 47.5 % (37.5-50.1); Hemoglobin 15.8 g/dL (12.9-16.9); Immature Granulocytes % 0.3 % (0-4); Lymphocytes # 2.6 K/mcL (0.6-4.6); Lymphocytes % 29.8 %; Mean Corpuscular HGB Conc 33.3 g/dL (31.6-35.5); Mean Corpuscular Hemoglobin 29.8 pg (28.0-33.3); Mean Corpuscular Volume 89.6 fL (83.0-100.0); Monocytes # 0.8 K/mcL (0.0-1.3); Monocytes % 8.6 %; Neutrophils # 4.5 K/mcL (1.6-8.9); Platelet Count 274 K/mcL (140-400); Red Cell Distribution Width 13.2 % (11.5-14.5); Segmented Neutrophils % 51.4 %
--- NOTE | 2018-03-01 13:44 | Emergency Department Note ---
Disposition Clinical Impression: Chest pain Qualifiers: Chest pain type: unspecified Qualified Code(s): R07.9 - Chest pain, unspecified Disposition: Admitted As Inpatient Referrals: Blue Ann DO [Primary Care Provider] - Forms: ED Satisfaction Letter General Adult HPI - General Chief complaint: ED Chest Pain Stated complaint: Chest Pain Time Seen by Provider: 03/01/18 12:39 Source: patient, EMS Mode of arrival: EMS Limitations: no limitations - History of Present Illness Pain Scale: 10 - Related Data Home Medications Medication Instructions Recorded Confirmed Lisinopril [Zestril] 20 mg PO DAILY 09/06/15 09/04/17 Albuterol Sulfate [Proair Hfa] 2 puff IH Q4H PRN 04/15/17 09/04/17 Atorvastatin Calcium [Lipitor] 20 mg PO HS 09/04/17 09/04/17 Previous Rx's Medication Instructions Recorded Ondansetron ODT [Zofran ODT] 4 mg SL Q8HR #10 tab.rapdis 10/29/17 Naproxen [Naprosyn] 500 mg PO BID PRN #20 tablet 02/26/18 Allergies Allergy/AdvReac Type Severity Reaction Status Date / Time Penicillins [PCN] Allergy Hives Verified 02/26/18 21:55 atorvastatin [From Lipitor] AdvReac Vomiting Verified 02/26/18 21:55 Constitutional: Reports: weakness. Denies: fever, chills Eyes: Reports: as per HPI ENT ED: Reports: as per HPI Cardiovascular: Reports: chest pain. Denies: palpitations, dyspnea on exertion Respiratory: Denies: cough, dyspnea, wheezes Gastrointestinal: Denies: abdominal pain, vomiting, diarrhea Genitourinary: Reports: as per HPI Musculoskeletal: Reports: as per HPI Integumentary: Denies: rash, abrasion Neurological: Denies: numbness, paresthesias Psychiatric: Reports: as per HPI Endocrine: Reports: as per HPI Hematological/Lymphatic: Reports: as per HPI Allergic/Immunologic: Reports: as per HPI Past Medical History - Past Medical History Medical history: Reports: GERD, hypertension Surgical history: Reports: other Psychiatric history: Reports: no psych history - Social History Smoking Status: Former smoker Smokeless Tobacco Status: Yes Alcohol use: Reports: none Drug use: Reports: none Physical Exam - General Limitations: no limitations General appearance: alert, in no apparent distress Course Vital Signs Temperature 98.4 F 03/01/18 12:38 Pulse Rate 63 03/01/18 12:38 Respiratory Rate 18 03/01/18 12:38 Blood Pressure 140/95 03/01/18 12:38 O2 Sat by Pulse Oximetry 99 03/01/18 12:38 Temperature 98.4 F 03/01/18 12:38 Pulse Rate 63 03/01/18 12:38 Respiratory Rate 18 03/01/18 12:38 Blood Pressure 140/95 03/01/18 12:38 O2 Sat by Pulse Oximetry 99 03/01/18 12:38 Oxygen Delivery Oxygen Delivery Room Air Medical Decision Making - Lab Data Result diagrams: 03/01/18 13:10 Lab Results 03/01/18 Range/Units 13:10 WBC 8.7 (4.3-11.1) K/mcL RBC 5.30 (4.19-5.50) M/mcL Hgb 15.8 (12.9-16.9) g/dL Hct 47.5 (37.5-50.1) % MCV 89.6 (83.0-100.0) fL MCH 29.8 (28.0-33.3) pg MCHC 33.3 (31.6-35.5) g/dL RDW 13.2 (11.5-14.5) % Plt Count 274 (140-400) K/mcL MPV 10.0 (9.4-12.4) fL Immature Gran % 0.3 (0-4) % Seg Neutrophils % 51.4 % Lymphocytes % 29.8 % Monocytes % 8.6 % Eosinophils % 9.1 % Basophils % 0.8 % Neutrophils # 4.5 (1.6-8.9) K/mcL Lymphocytes # 2.6 (0.6-4.6) K/mcL Monocytes # 0.8 (0.0-1.3) K/mcL Eosinophils # 0.8 H (0.0-0.6) K/mcL Basophils # 0.1 (0.0-0.2) K/mcL Attestation Statement - Attestation Attestation: I examined this patient and my medical decision-making was reviewed with the Resident Physician. I agree with the documented findings, disposition and treatment plan as described except to the extent set forth below. 42 year old male presents to the ED with compalitns of chest pain with exertion and this is a 24 hours bounce back. Patient states that it is now radiating into his arm and worse from yesterday when he went to lift a heavy object today. WE will tret wiht ASA and nitro and then admito xavier baker after cardio workup.
[2018-03-01 13:46] LABS: BUN/Creatinine Ratio 13 (6-26); Blood Urea Nitrogen 13 mg/dL (6-20); Calcium 9.6 mg/dL (8.6-10.3); Carbon Dioxide 26 mEq/L (23-29); Chloride 106 mEq/L (98-107); Glucose 92 mg/dL (70-105); Osmolality,Calculated 288 (280-300); Potassium 4.2 mEq/L (3.5-5.1); Sodium 139 mEq/L (136-145); eGFR For Non-African Americans > 60 (> 60)
[2018-03-01 13:47] LABS: Troponin I < 0.03 ng/mL (< 0.04)
[2018-03-01] MEDS: Nitroglycerin 0.4 MG TAB.SUBL SL ONE ×3 (14:04→14:17)
[2018-03-01] MEDS ORDERED: Naloxone 0.4 MG/ML INJ IVP PRN (18:02)
[2018-03-01] MEDS: *HR* HYDROcodone/Acet 5/325 mg TABLET PO PRN (18:28)
[2018-03-01] MEDS: Ibuprofen 600 MG TABLET PO SCH (20:30)
[2018-03-01] MEDS ORDERED: (Levocetirizine Dihydrochloride 5 MG) PO SCH (21:00)
--- NOTE | 2018-03-01 22:41 | Internal Med History&Physical ---
Date of Encounter: 03/01/18 Time of Encounter: 21:00 Internal Medicine - H&P: HPI Chief complaint: Chest pain Admitted From: Home Plans for Post Hospital Care: Home History of present illness: Mr. Dykes is a 42 year old male. This patient came to the emergency room complaining of chest pain it started when he was lifting a heavy box (about 30 pounds). The pain was substernal; radiated to the right anterior chest and the right upper extremity. It was moderate/severe in intensity. It was not associated with any other symptoms. He was here in our emergency department with similar chest pain on 02/26; discharged home with diagnosis of costochondritis. The chest pain has been bothering him off and on for about 2 years. It was last year when he had Cardiolite stress test. It showed normal results. His chest pain is not related to exertion or any other particular factors. The pain is worse at palpation. He has been treated for hypertension. He does not have any other medical problems. Review of systems: All 14 organ systems were reviewed by me with the patient. Positive and pertinent negative findings are listed above. The rest of organ systems is negative. Physical Exam: Skin: Free of rash and discoloration. Musculoskeletal: There is tenderness at the palpation of sternal area. Eyes: Sclera is white. There is no discharge from eyes. ENMT: Oral/pharyngeal mucosa is normal in appearance. There is no discharge from nose or ears. Respiratory: Normal breath sounds with no crackles and wheezes bilaterally. CV: Heart is regular with no gallop or murmur. GI: Abdomen is flat and soft with no palpable mass or visceromegaly. : There is no tenderness in patient's flanks bilaterally. Neuro exam: He has good strength in upper and lower extremities. He has normal eye movements. Psychiatric: He has normal affect. His thought process is appropriate to the situation. A/P: Chest pain. Seems to be musculoskeletal; triggered by lifting a heavy box. His troponin and EKG done in emergency department are normal. Will repeat his troponin. We will keep him in the telemetry floor. The patient will be taking ibuprofen at 600 mg by mouth 3 times a day. Will discharge him tomorrow, if stable. Hypertension. Under control. Will continue lisinopril. Past Med Surg Social Fam HX - Past Medical History Medical history: asthma, GERD, hypertension Additional medical history: collitis Psychiatric history: other - Past Surgical History Surgical History: other Additional surgical history: tonsillectomy - Social History Smoking Status: Former smoker Smokeless Tobacco Status: Yes Alcohol use: none Drug use: none - Family History Mother Adopted: Yes Living Status: Father Adopted: Yes Living Status: Still Living Hx Family Neurologic Disorders: No Internal Medicine - H&P: Meds Lisinopril [Zestril] 20 mg PO DAILY 09/06/15 [History] Aspirin [Adult Aspirin] 81 mg PO DAILY 03/01/18 [History] Atorvastatin [Lipitor] 20 mg PO HS 03/01/18 [History] Levocetirizine Dihydrochloride 5 mg PO HS 03/01/18 [History] Naproxen [Naprosyn] 500 mg PO BID PRN 03/01/18 [History] Naproxen [Naprosyn] 500 mg PO BID PRN 03/01/18 [History] Pantoprazole Sodium [Protonix] 40 mg PO DAILY 03/01/18 [History] buPROPion HCl [Zyban] 150 mg PO DAILY 03/01/18 [History] 3 Allergy/AdvReac Type Severity Reaction Status Date / Time Penicillins [PCN] Allergy Hives Verified 03/01/18 14:01 atorvastatin [From Lipitor] AdvReac Vomiting Verified 03/01/18 14:01 - Constitutional Vitals: Temp Pulse Resp BP Pulse Ox 98.4 F 61 14 120/73 95 03/01/18 20:00 03/01/18 20:00 03/01/18 20:00 03/01/18 20:00 03/01/18 20:00 General appearance: Present: A&O X 3, answers questions appropriately Internal Med - H&P Results - Labs CBC & Chem 7: 03/01/18 13:10 03/01/18 13:10 Labs: Cardiac Enzymes 03/01/18 Range/Units 18:22 Troponin I < 0.03 (< 0.04) ng/mL - Assessment and plan (1) Chest pain Current Visit: Yes Status: Acute Qualifiers: Chest pain type: other chest pain Qualified Code(s): R07.89 - Other chest pain; R07.8 - Other chest pain (2) Hypertension Current Visit: No Status: Chronic Qualifiers: Hypertension type: essential hypertension Qualified Code(s): I10 - Essential (primary) hypertension - Time Spent With Patient Total time spent is greater than 50% in coordination of care (as documented) at patient's floor/unit and/or counseling patient: Greater than 35 minutes (40 minutes)
[2018-03-02 07:04] VITALS: BP 127/86
[2018-03-02] MEDS: *HR* HYDROcodone/Acet 5/325 mg TABLET PO PRN ×2 (07:21)
[2018-03-02] MEDS: Ibuprofen 600 MG TABLET PO SCH (08:30)
[2018-03-02] MEDS ORDERED: Aspirin Enteric Coated 81 MG Tablet PO SCH (09:00)
[2018-03-02] MEDS ORDERED: Lisinopril 20 MG TABLET PO SCH (09:00)
[2018-03-02] MEDS ORDERED: BuPROPion SR (12 HR) 150 MG TABLET PO SCH (09:00)
--- NOTE | 2018-03-02 11:24 | Discharge Summary ---
- NOTES TO OUTPATIENT PROVIDER Notes to Outpatient Provider: f/u with PCP within 2 weeks. Date of Encounter: 03/02/18 Time of Encounter: 11:21 - Discharge Diagnosis (1) Hypertension Priority: Secondary Status: Chronic Qualifiers: Hypertension type: essential hypertension Qualified Code(s): I10 - Essential (primary) hypertension (2) Chest pain Priority: Primary Status: Acute Qualifiers: Chest pain type: other chest pain Qualified Code(s): R07.89 - Other chest pain; R07.8 - Other chest pain Hospital course: Mr. Dykes is a 42 year old male who came to the emergency room complaining of chest pain, it started when he was lifting a heavy box (about 30 pounds). The pain was substernal; radiated to the right anterior chest and the right upper extremity. It was moderate/severe in intensity. It was not associated with any other symptoms. He was here in our emergency department with similar chest pain on 02/26; discharged home with diagnosis of costochondritis. The chest pain has been bothering him off and on for about 2 years. It was last year when he had Cardiac stress test. It showed normal results. His chest pain is not related to exertion or any other particular factors. The pain is worse at palpation. EKG was normal without acute ST-T change, troponin was negative 3. Patient chest pain is consistent with musculoskeletal disorder. Will be discharged home today with pain medications. He was instructed to follow-up with PCP as scheduled. Discharge discussed with: patient Time spent discussing smoking cessation with patient: more than 10 minutes - Time Spent with Patient Total time spent providing and/or coordinating discharge services: Greater than 30 minutes - Discharge Medications Prescriptions: HYDROcodone/Acet 5/325 mg [Union 5-325 mg] 1 tab PO Q6HR PRN 5 Days #20 tablet PRN Reason: Mild To Moderate Pain Home Medications: Lisinopril [Zestril] 20 mg PO DAILY 09/06/15 [History] Aspirin [Adult Aspirin] 81 mg PO DAILY 03/01/18 [History] Atorvastatin [Lipitor] 20 mg PO HS 03/01/18 [History] Levocetirizine Dihydrochloride 5 mg PO HS 03/01/18 [History] Naproxen [Naprosyn] 500 mg PO BID PRN 03/01/18 [History] Pantoprazole Sodium [Protonix] 40 mg PO DAILY 03/01/18 [History] buPROPion HCl [Zyban] 150 mg PO DAILY 03/01/18 [History] HYDROcodone/Acet 5/325 mg [Union 5-325 mg] 1 tab PO Q6HR PRN 5 Days #20 tablet 03/02/18 [Rx] Allergies/Adverse Reactions: 3 Allergy/AdvReac Type Severity Reaction Status Date / Time Penicillins [PCN] Allergy Hives Verified 03/01/18 14:01 atorvastatin [From Lipitor] AdvReac Vomiting Verified 03/01/18 14:01 Date of admission: 03/01/18 14:41 Primary care physician: Blue Ann DO Anticipated date of discharge: 03/02/18 - Constitutional Vitals: Temp Pulse Resp BP Pulse Ox 97.8 F 55 17 127/86 97 03/02/18 06:55 03/02/18 06:55 03/02/18 06:55 03/02/18 06:55 03/02/18 06:55 General appearance: Present: A&O X 3, answers questions appropriately Exam: PHYSICAL EXAMINATION: GENERAL APPEARANCE: The patient is alert, oriented and in no acute distress. HEENT: Head is normocephalic. The sinuses are nontender. Pupils are equal and reactive. The nares are patent. Oropharynx clear without lesions. NECK: Supple without lymphadenopathy. HEART: Regular rate and rhythm. LUNGS: No crackles or wheezes are heard. ABDOMEN: Soft, nontender, nondistended with good bowel sounds heard. Inguinal area is normal. EXTREMITIES: Without cyanosis, clubbing or edema. NEUROLOGICAL: Gross nonfocal. SKIN: Warm and dry without any rash. - Patient Status Disposition: Home, Self-Care Condition: Good Functional capacity at discharge: independent ambulation Overall status at discharge: patient is progressing back to baseline - Discharge Instructions Instructions: Hydrocodone/Acetaminophen (By mouth), Chest Pain (DC) Follow Up With: Blue Ann DO [Primary Care Provider] - (please call Saturday and make an appointment to be seen in the next 1 - 2 weeks. ) - Diet and Activity Activity: increase activity as tolerated Diet: low fat, low cholesterol, low salt diet
--- NOTE | 2018-03-03 09:35 | Electrocardiograph Report ---
[place] [id number] Test Date: 2018-03-01 Pat Name: Edwardo Dykes Department: 104 Room: [facility] Gender: M Bench Manager: DAYAMI : 1975 Requested By: Georgette Heard Order Number: [id number] Reading MD: Mayank Meek Measurements Intervals [place] Rate: 62 P: 22 MI: 116 QRS: 5 QRSD: 89 T: 14 QT: 387 QTc: 391 Interpretive Statements SINUS RHYTHM WITH SHORT MI INTERVAL Electronically Signed On 03-03-2018 9:34:21 EDT by Mayank Meek
== END 2018-03-02 12:21 | disposition home or self-care (01) ==
LOC: 3NENU 12:35 → EMEROO 12:35 → 3NENU 15:12
PROVIDERS: ADMIT Hospitalist; ATTEND Hospitalist

== ENCOUNTER 2020-06-06 13:50 | Observation (INO) ==
[2020-06-06] MEDS ORDERED: Isovue-370 500 ML BOTTLE IVP ONE (15:01)
[2020-06-06 15:09] LABS: Hematocrit 53.6 % (37.5-50.1); Hemoglobin 16.8 g/dL (12.9-16.9); Mean Corpuscular HGB Conc 31.3 g/dL (31.6-35.5); Mean Corpuscular Hemoglobin 28.6 pg (28.0-33.3); Mean Corpuscular Volume 91.2 fL (83.0-100.0); Mean Platelet Volume 9.4 fL (9.4-12.4); Platelet Count 250 K/mcL (140-400); Red Blood Count 5.88 M/mcL (4.19-5.50); Red Cell Distribution Width 13.4 % (11.5-14.5); White Blood Count 8.4 K/mcL (4.3-11.1)
[2020-06-06 15:17] LABS: INR 1.1; Prothrombin Time 12.9 Seconds (9.4-12.1)
[2020-06-06 15:20] LABS: Activated Partial Thrombo Time 29.8 Seconds (26.0-36.0)
[2020-06-06 15:26] LABS: BUN/Creatinine Ratio 11 (6-26); Blood Urea Nitrogen 11 mg/dL (6-20); Calcium 9.5 mg/dL (8.6-10.3); Carbon Dioxide 26 mEq/L (23-29); Chloride 106 mEq/L (98-107); Glucose 82 mg/dL (70-105); Osmolality,Calculated 286 (280-300); Potassium 4.1 mEq/L (3.5-5.1); Sodium 139 mEq/L (136-145); eGFR For African Americans > 60 (> 60); eGFR For Non-African Americans > 60 (> 60)
[2020-06-06 15:28] LABS: Troponin I < 0.03 ng/mL (< 0.04)
[2020-06-06] MEDS ORDERED: Aspirin 81 MG TAB.CHEW PO ONE (15:40)
[2020-06-06] MEDS ORDERED: Aspirin 81 MG TAB.CHEW ONE (16:46)
[2020-06-06] MEDS ORDERED: Dextrose Gel 15 GM/37.5 ML TUBE PO PRN ×2 (18:28)
[2020-06-06] MEDS ORDERED: D5% in Water 1,000 ML IVC PRN (18:28)
[2020-06-06] MEDS ORDERED: *HR* Dextrose 50 % in Water (Vial) 50 ML VIAL IVP PRN (18:28)
[2020-06-06] MEDS ORDERED: Naloxone 0.4 MG/ML INJ IVP PRN (18:32)
[2020-06-06] MEDS ORDERED: Acetaminophen 325 MG TABLET PO PRN (18:32)
[2020-06-06] MEDS ORDERED: Perflutren Lipid Microsphere 1.3 ML in 0.9 % Sodium Chloride 8.7 ML IVP PRN (18:37)
[2020-06-06] MEDS: levoFLOXacin 500 MG TABLET PO SCH (19:53)
[2020-06-07 04:06] LABS: Hematocrit 46.4 % (37.5-50.1); Mean Corpuscular HGB Conc 32.8 g/dL (31.6-35.5); Mean Corpuscular Hemoglobin 30.2 pg (28.0-33.3); Mean Corpuscular Volume 92.1 fL (83.0-100.0); Mean Platelet Volume 9.8 fL (9.4-12.4); Platelet Count 229 K/mcL (140-400); Red Blood Count 5.04 M/mcL (4.19-5.50); Red Cell Distribution Width 13.5 % (11.5-14.5); White Blood Count 9.6 K/mcL (4.3-11.1)
[2020-06-07 04:26] LABS: BUN/Creatinine Ratio 15 (6-26); Blood Urea Nitrogen 14 mg/dL (6-20); Calcium 9.1 mg/dL (8.6-10.3); Carbon Dioxide 25 mEq/L (23-29); Chloride 106 mEq/L (98-107); Chol/HDL Ratio 4.8 (0-4.9); Cholesterol 181 mg/dL (< 200); Glucose 90 mg/dL (70-105); HDL Cholesterol 38 mg/dL (40-59); LDL Cholesterol,Calculated 113 mg/dL (< 100); Osmolality,Calculated 286 (280-300); Phosphorous 3.8 mg/dL (2.7-4.5); Potassium 3.9 mEq/L (3.5-5.1); Sodium 138 mEq/L (136-145); Triglycerides 151 mg/dL (< 150); eGFR For African Americans > 60 (> 60); eGFR For Non-African Americans > 60 (> 60)
[2020-06-07 04:30] LABS: Hemoglobin 15.2 g/dL (12.9-16.9)
[2020-06-07] MEDS: levoFLOXacin 500 MG TABLET PO SCH (07:25)
[2020-06-07] MEDS ORDERED: Loratadine 10 MG TABLET PO SCH (09:00)
[2020-06-07] MEDS ORDERED: lisinopriL 20 MG TABLET PO SCH (09:00)
[2020-06-07] MEDS ORDERED: Aspirin Enteric Coated 81 MG Tablet PO SCH (09:00)
[2020-06-07] MEDS ORDERED: BuPROPion XL (24 HR) 150 MG TABLET PO SCH (09:00)
[2020-06-07 09:11] LABS: Estimated Average Glucose 131 mg/dl
[2020-06-07 11:01] VITALS: BP 121/79
== END 2020-06-07 12:45 | disposition home or self-care (01) ==
LOC: 3BNU 13:50 → EMEROOARM 13:50 → SUATTDRO 17:08 → 3BNU 17:25 → UNDODISOB 17:27 → 3BNU 17:50
PROVIDERS: ADMIT Family Medicine; ATTEND Internal Medicine

== ENCOUNTER 2021-05-31 12:13 | Observation (INO) ==
[2021-05-31] MEDS ORDERED: Isovue-370 500 ML BOTTLE IVP ONE (12:59)
[2021-05-31 14:06] LABS: Prothrombin Time 10.9 Seconds (9.4-12.1)
[2021-05-31 14:08] LABS: Activated Partial Thrombo Time 28.4 Seconds (26.0-36.0)
[2021-05-31 14:24] LABS: Basophils # 0.1 K/mcL (0.0-0.2); Basophils % 0.9 %; Eosinophils # 0.6 K/mcL (0.0-0.6); Eosinophils % 7.9 %; Hematocrit 50.8 % (37.5-50.1); Hemoglobin 16.4 g/dL (12.9-16.9); Immature Granulocytes % 0.6 % (0-4); Immature Platelets 2.6 % (1.1-6.1); Lymphocytes # 1.9 K/mcL (0.6-4.6); Lymphocytes % 24.2 %; Mean Corpuscular HGB Conc 32.3 g/dL (31.6-35.5); Mean Platelet Volume 9.8 fL (9.4-12.4); Monocytes # 0.7 K/mcL (0.0-1.3); Monocytes % 9.1 %; Neutrophils # 4.5 K/mcL (1.6-8.9); Platelet Count 267 K/mcL (140-400); Red Blood Count 5.46 M/mcL (4.19-5.50); Red Cell Distribution Width 13.4 % (11.5-14.5); Segmented Neutrophils % 57.3 %; White Blood Count 7.8 K/mcL (4.3-11.1)
[2021-05-31 14:25] LABS: Platelet Estimate Normal (Normal)
[2021-05-31 14:47] LABS: Alanine Aminotransferase 35 Units/L (7-52); Albumin 4.1 g/dL (3.5-5.7); Albumin/Globulin Ratio 1.2 (1.1-2.2); Alkaline Phosphatase 48 Units/L (34-104); Aspartate Amino Transferase 26 Units/L (13-39); BUN/Creatinine Ratio 12 (6-26); Bilirubin,Direct 0.1 mg/dL (0.0-0.2); Bilirubin,Indirect 0.2 mg/dL (0.0-1.0); Bilirubin,Total 0.3 mg/dL (0.3-1.0); Blood Urea Nitrogen 13 mg/dL (6-20); Calcium 9.3 mg/dL (8.6-10.3); Carbon Dioxide 21 mEq/L (23-29); Chloride 105 mEq/L (98-107); Globulin 3.5 g/dL (2.4-3.5); Glucose 76 mg/dL (70-105); Osmolality,Calculated 285 (280-300); Sodium 138 mEq/L (136-145); Total Protein 7.6 g/dL (6.4-8.9); Troponin I < 0.03 ng/mL (< 0.04); eGFR For African Americans > 60 (> 60); eGFR For Non-African Americans > 60 (> 60)
[2021-05-31] MEDS ORDERED: Aspirin 325 MG TABLET PO ONE (16:10)
[2021-05-31] MEDS ORDERED: Perflutren Lipid Microsphere 1.3 ML in 0.9 % Sodium Chloride 8.7 ML IVP PRN (16:48)
[2021-05-31] MEDS ORDERED: Nitroglycerin 0.4 MG TAB.SUBL SL PRN (16:54)
[2021-05-31] MEDS ORDERED: Ondansetron 4 MG/2 ML VIAL IVP PRN (16:54)
[2021-06-01 02:08] LABS: Alanine Aminotransferase 32 Units/L (7-52); Albumin 3.6 g/dL (3.5-5.7); Albumin/Globulin Ratio 1.2 (1.1-2.2); Alkaline Phosphatase 43 Units/L (34-104); Aspartate Amino Transferase 20 Units/L (13-39); BUN/Creatinine Ratio 12 (6-26); Bilirubin,Total 0.3 mg/dL (0.3-1.0); Blood Urea Nitrogen 13 mg/dL (6-20); Carbon Dioxide 26 mEq/L (23-29); Chloride 104 mEq/L (98-107); Chol/HDL Ratio 4.7 (0-4.9); Cholesterol 183 mg/dL (< 200); Globulin 3.1 g/dL (2.4-3.5); Glucose 87 mg/dL (70-105); HDL Cholesterol 39 mg/dL (40-59); LDL Cholesterol,Calculated 101 mg/dL (< 100); Osmolality,Calculated 283 (280-300); Potassium 3.8 mEq/L (3.5-5.1); Sodium 137 mEq/L (136-145); Total Protein 6.7 g/dL (6.4-8.9); Triglycerides 216 mg/dL (< 150); eGFR For African Americans > 60 (> 60); eGFR For Non-African Americans > 60 (> 60)
[2021-06-01 02:34] LABS: Estimated Average Glucose 120 mg/dl; Hemoglobin A1C 5.8 %
[2021-06-01] MEDS ORDERED: *HR* Enoxaparin 40 MG/0.4 ML SYRINGE SQ SCH (06:00)
[2021-06-01 11:40] VITALS: BP 125/62; PULSE 73; TEMP 97.7; O2SAT 95
== END 2021-06-01 16:31 | disposition home or self-care (01) ==
LOC: 3BNU 12:13 → EMEROOARM 12:13 → SUATTDRO 17:18 → 3BNU 18:08
PROVIDERS: ADMIT Internal Medicine; ATTEND Student in an Organized Health Care Education/Training Program